=== PATIENT | female | born 1990 | race Caucasian/White ===

== ENCOUNTER 2017-11-19 07:48 | Emergency (ER) | payer OTHER ==
--- NOTE | 2017-11-19 08:21 | ED Physician Documentation ---
PD HPI SKIN - Stated complaint Stated Complaint: RASH ALL OVER - Chief complaint Chief Complaint: General - History obtained from History obtained from: Patient - History of Present Illness Timing - onset: How many days ago (4) Timing - details: Still present Location: [place] Quality / character: Itchy Contributing factors: Unknown Similar symptoms before: Diagnosis (Allergic rash) - Additional information Additional information: The patient is a 27-year-old female who presents with pruritic rash that started 4 days ago on her legs, and has spread to involve all of her extremities and trunk. She denies fever, sore throat, or shortness of breath. She recently had an upper respiratory infection with cough, but that has improved. She has a history of similar rash about 4 times in the past. The last time was 3 years ago and lasted for about 1 month. She was seen by a extraction operator at that time and had a skin biopsy that was negative. The extraction operator diagnosed it as an allergic rash. Her family recently moved here from [place] with the [employer]. Review of Systems Constitutional: denies: Fever Eyes: denies: Irritation Nose: denies: Congestion Throat: denies: Sore throat Cardiac: denies: Chest pain / pressure Respiratory: denies: Dyspnea, Cough GI: denies: Abdominal Pain, Nausea, Vomiting : denies: Dysuria Skin: reports: Rash Musculoskeletal: denies: Back pain, Extremity pain, Joint pain Neurologic: denies: Headache PD PAST MEDICAL HISTORY - Past Medical History Cardiovascular: None Respiratory: None Neuro: None Endocrine/Autoimmune: None - Allergies Allergies/Adverse Reactions: Allergies Allergy/AdvReac Type Severity Reaction Status Date / Time No Known Drug Allergies Allergy Verified 11/19/17 08:04 - Social History Does the pt smoke?: No PD ED PE NORMAL - Vitals Vital signs reviewed: Yes (Normal) - General General: Alert and oriented X 3, Well developed/nourished - HEENT HEENT: Atraumatic, Ears normal, Moist mucous membranes, Pharynx benign - Neck Neck: No adenopathy, No JVD - Cardiac Cardiac: RRR, No murmur - Respiratory Respiratory: No respiratory distress, Clear bilaterally - Abdomen Abdomen: Soft, Non tender - Back Back: No CVA TTP - Derm Derm: Other (Urticarial rash involving trunk and extremities.) - Extremities Extremities: No edema, No calf tenderness / cord - Neuro Neuro: Alert and oriented X 3, No motor deficit, Normal speech Results - Vitals Vitals: Vital Signs - 24 hr 11/19/17 07:55 Temperature 36.3 C L Heart Rate 107 H Respiratory 18 Rate Blood Pressure 114/78 O2 Saturation 95 Oxygen O2 Source Room air PD MEDICAL DECISION MAKING - ED course Complexity details: considered differential, d/w patient ED course: The patient's presentation is most consistent with urticaria. There is no clinical evidence to suggest infectious etiology. I discussed with her the diagnosis, symptomatic treatment and outpatient follow-up, as well as potentially worrisome signs or symptoms that should prompt reevaluation in the emergency department. - Sepsis Event Vital Signs: Vital Signs - 24 hr 11/19/17 07:55 Temperature 36.3 C L Heart Rate 107 H Respiratory 18 Rate Blood Pressure 114/78 O2 Saturation 95 Oxygen O2 Source Room air Departure - Departure Disposition: 01 Home, Self Care Clinical Impression: Urticarial rash Condition: Stable Instructions: ED Urticaria Follow-Up: [facility] [Provider Group] Comments: Take Benadryl, up to 50 mg 4 times daily if needed for itching. Avoid driving while taking Benadryl because it tends to make a person sleepy. You can use calamine lotion topically to help with itching. Follow up with your primary physician within 2 weeks. Call to schedule an appointment. Return to the emergency department if you develop increasing rash, sore throat or difficulty swallowing, shortness of breath, or otherwise worsening symptoms.
[2017-11-19 08:57] VITALS: BP 112/74
== END 2017-11-19 08:29 | disposition home or self-care (01) ==
LOC: ED 07:48
DX: L50.9 Urticaria, unspecified (principal)
CPT/HCPCS: 99282; 99283

== ENCOUNTER 2018-01-19 20:41 | Emergency (ER) | payer OTHER ==
--- NOTE | 2018-01-19 23:05 | ED Physician Documentation ---
PD HPI FEMALE - Stated complaint Stated Complaint: FEMALE /6WKS - Chief complaint Chief Complaint: Abd Pain - History obtained from History obtained from: Patient - History of Present Illness Timing - onset: Today Timing - details: Abrupt onset, Intermittant Pain level max: 1 (cramping) Associated symptoms: Pelvic pain (pelvic cramping), Vaginal bleeding. 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 Had (+) OTC test x 2 at home and (+) (urine) test at [facility] last week. Presents due to vaginal bleeding (spotting) that started earlier today. Has had mild, episodic suprapubic cramping x 1 week. Review of Systems Constitutional: denies: Fever GI: denies: Abdominal Pain (suprapubic cramping, but no abdominal pain per se), Nausea, Vomiting : reports: Vaginal bleeding, Now EGA (6 weeks). denies: Dysuria, Frequency PD PAST MEDICAL HISTORY - Past Medical History Past Medical History: No Cardiovascular: None Respiratory: None Neuro: None Endocrine/Autoimmune: None - Past Surgical History Past Surgical History: Yes /TELE MARKETING EXECUTIVE: section - Present Medications Home Medications: Ambulatory Orders Medication Instructions Recorded Confirmed No Known Home Medications 01/19/18 01/19/18 - Allergies Allergies/Adverse Reactions: Allergies Allergy/AdvReac Type Severity Reaction Status Date / Time No Known Drug Allergies Allergy Verified 01/19/18 20:48 - Social History Does the pt smoke?: No Smoking Status: Never smoker Does the pt drink ETOH?: No Does the pt have substance abuse?: No - Immunizations Immunizations are current?: Yes - POLST Patient has POLST: No PD ED PE NORMAL - Vitals Vital signs reviewed: Yes - General General: Alert and oriented X 3, No acute distress, Well developed/nourished - Cardiac Cardiac: RRR, No murmur - Respiratory Respiratory: No respiratory distress - Abdomen Abdomen: Soft, Non tender - Back Back: No CVA TTP Results - Vitals Vitals: Vital Signs - 24 hr 01/19/18 20:45 Temperature 36.5 C Heart Rate 109 H Respiratory 18 Rate Blood Pressure 137/83 H O2 Saturation 95 Oxygen O2 Source Room air PD MEDICAL DECISION MAKING - ED course Complexity details: considered differential, d/w patient ED course: Patient says she thinks she is type O+, but she says she has been told she didn't need rhogam in the past. Has not had US in this . Urine HCG is negative. Serum HCG is 20. US not performed at this time. The most likely explanation is her HCG is declining from previous levels that were detectable by urine HCGs, likely miscarriage. She has appointment with PMD at end of this week. Instructed to return to ED if worse in any way. Departure - Departure Disposition: 01 Home, Self Care Clinical Impression: Vaginal bleeding Condition: Good Instructions: ED Miscarriage Poss Follow-Up: [facility] [Provider Group] Discharge Date/Time: 01/20/18 00:40
[2018-01-19 23:08] LABS: BILIRUBIN,URINE NEGATIVE (NEGATIVE); GLUCOSE, URINE (UA) NEGATIVE (NEGATIVE); KETONES,URINE (UA) TRACE mg/dL (NEGATIVE); LEUKOCYTE ESTERASE, URINE NEGATIVE (NEGATIVE); NITRITE,URINE NEGATIVE (NEGATIVE); OCCULT BLOOD,URINE LARGE (NEGATIVE); PROTEIN,URINE NEGATIVE (NEGATIVE); UROBILINOGEN,URINE 0.2 (NORMAL) E.U./dL (NORMAL)
[2018-01-19 23:09] LABS: CLARITY,URINE CLEAR (CLEAR)
[2018-01-19 23:10] LABS: HCG UR QUAL NEGATIVE
[2018-01-19 23:14] LABS: BACTERIA,URINE Rare /HPF (None Seen); SQUAMOUS EPITHELIAL CELL,UR MOD Squamous (<= Few)
[2018-01-20 00:45] VITALS: BP 112/83
== END 2018-01-20 00:40 | disposition home or self-care (01) ==
LOC: ED 20:41
DX: O20.9 Hemorrhage in early pregnancy, unspecified (principal); Z3A.01 Less than 8 weeks gestation of pregnancy
CPT/HCPCS: 81001; 81003; 81025; 84702; 87086; 99283

== ENCOUNTER 2020-12-09 12:43 | Outpatient (CLI) | payer OTHER | END 2020-12-09 12:44 | disposition home or self-care (01) | LOC: RT 12:43 | PROVIDERS: ATTEND Student in an Organized Health Care Education/Training Program | DX: R06.09 Other forms of dyspnea (principal) | CPT/HCPCS: 94010; 94729 ==